=== PATIENT | female | born 1960 | race Caucasian/White ===

== ENCOUNTER 2017-07-27 22:01 | Emergency (ER) | payer SELFPAY ==
--- NOTE | 2017-07-28 | ED ---
Lower Extremity - HPI Summary HPI Summary: Pt here w/ Lt foot injury earlier tonight. Was walking when she accidentally tripped nad as she tried to catch her footing, she Lt foot got caught under her and "cracked". She has bruising and swelling along the dorsal lateral aspect now. Denies numbness, tingling, weakness but has focal pain. Took 400mg ibuprofen prior to arrival and has been icing with elevation prior to my exam. She has not tried bearing weight since - borrowed a friend's crutches. 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 Pain Intensity: 6 - Allergies/Home Medications Allergies/Adverse Reactions: Allergies Allergy/AdvReac Type Severity Reaction Status Date / Time Dionna Oil Allergy Hives Verified 07/27/17 22:07 PMH/Surg Hx/FS Hx/Imm Hx Previously Healthy: Yes Endocrine/Hematology History: Denies: Hx Anticoagulant Therapy, Hx Blood Disorders Infectious Disease History: No Infectious Disease History: Reports: Traveled Outside the in Last 30 Days - [facility] - Social History Occupation: Employed Full-time Lives: With Family Alcohol Use: Rare Hx Substance Use: No Substance Use Type: Reports: None Hx Tobacco Use: No Smoking Status (MU): Never Smoked Tobacco Review of Systems Constitutional: Negative Positive: no symptoms reported Musculoskeletal: Other - see hpi Positive: Bruising - see hpi Neurological: Negative Psychological: Normal All Other Systems Reviewed And Are Negative: Yes Physical Exam Triage Information Reviewed: Yes Vital Signs On Initial Exam: Initial Vitals Temp Pulse Resp BP Pulse Ox 97.4 F 62 18 135/85 98 07/27/17 22:03 07/27/17 22:03 07/27/17 22:03 07/27/17 22:03 07/27/17 22:03 Vital Signs Reviewed: Yes Appearance: Positive: Well-Appearing, No Pain Distress, Well-Nourished Skin: Positive: Warm, Dry - ecchymosis w/ edema over Lt lateral foot Head/Face: Positive: Normal Head/Face Inspection Eyes: Positive: EOMI ENT: Positive: Hearing grossly normal Respiratory/Lung Sounds: Positive: Breath Sounds Present Cardiovascular: Positive: Pulses are Symmetrical in both Upper and Lower Extremities Musculoskeletal: Positive: Strength/ROM Intact - toes, ankle - pain w/ toe flexion, Pain @ - TTP over edema along Lt lateral foot Neurological: Positive: Normal, Sensory/Motor Intact, Alert, Oriented to Person Place, Time, CN Intact II-III Psychiatric: Positive: Normal - [place] Coma Scale Coma Scale Total: 15 Diagnostics - Vital Signs Vital Signs Temp Pulse Resp BP Pulse Ox 07/27/17 22:07 97.4 F 62 18 135/85 98 07/27/17 22:03 97.4 F 62 18 135/85 98 - Laboratory Diagnostic Studies Comment: Wet read on Lt foot XR - no fx, no dislocation. Lab Statement: Any lab studies that have been ordered have been reviewed, and results considered in the medical decision making process. Lower Extremity Course/Dx - Diagnoses Provider Diagnoses: Sprain of left foot Discharge - Discharge Plan Condition: Stable Disposition: HOME Patient Education Materials: Crutch Instructions (ED), Foot Sprain (ED) Referrals: Kayce Ariza MD [Medical Doctor] - Additional Instructions: Rest, ice, compression, elevation No weight bearing until seen by orthopedist - call Saturday to schedule an appointment You may continue ibuprofen 600g every 6 hours with food for pain/swelling. *If you develop numbness, tingling, weakness, return to ED
[2017-07-28] MEDS ORDERED: Ibuprofen TAB* 400 MG PO ONE (00:35)
[2017-07-28 01:35] VITALS: BP 145/85
--- NOTE | 2017-07-28 07:48 | RAD ---
HISTORY: Left foot edema, pain COMPARISONS: None VIEWS: 3, Frontal, lateral, and oblique views of the left foot FINDINGS: BONE DENSITY: Normal. BONES: There are are small bone fragments along the lateral aspect of the cuboid and dorsal aspect of the calcaneus consistent with avulsion fractures. JOINTS: There is no arthropathy. ALIGNMENT: There is no dislocation. SOFT TISSUES: Unremarkable. OTHER FINDINGS: None. IMPRESSION: AVULSION FRACTURES OF THE DORSAL ASPECT OF THE CALCANEUS AND LATERAL ASPECT OF THE CUBOID
== END 2017-07-28 01:35 | disposition home or self-care (01) ==
LOC: ED 22:01
DX: S92.002A Unspecified fracture of left calcaneus, initial encounter for closed fracture (principal); S92.212A Displaced fracture of cuboid bone of left foot, initial encounter for closed fracture; S93.602A Unspecified sprain of left foot, initial encounter; W18.40XA Slipping, tripping and stumbling without falling, unspecified, initial encounter; Y92.9 Unspecified place or not applicable
CPT/HCPCS: A9270-GY